=== PATIENT | male | born 1955 | race Two or more races ===

== ENCOUNTER 2020-02-17 12:16 | Inpatient (IN) | payer MEDICARE, OTHER ==
[~2020-02-17] VITALS: Ht 170.2 cm; Wt 59.4 kg
[2020-02-17 13:13] LABS: BASOPHILS % (AUTO) 0.6 % (0.0-2.0); HEMATOCRIT 40 % (39-51); HEMOGLOBIN 13.5 g/dL (13.5-17.5); LYMPHOCYTES # (AUTO) 2.1 /CMM (0.8-4.8); LYMPHOCYTES % (AUTO) 32.3 % (20.0-44.0); MEAN CORPUSCULAR HGB CONC 34 g/dl (31.0-36.0); MEAN CORPUSCULAR VOLUME 96 fL (80-96); MONOCYTES # (AUTO) 0.5 /CMM (0.1-1.30); MONOCYTES % (AUTO) 6.9 % (2.0-12.0); NEUTROPHILS # (AUTO) 3.9 /CMM (1.8-8.9); NEUTROPHILS % (AUTO) 59.2 % (43.0-81.0); PLATELET COUNT (AUTO) 249 /CMM (150-450); RED BLOOD CELL COUNT(AUTO) 4.21 MIL/uL (4.5-6.0); WHITE BLOOD COUNT (AUTO) 6.5 K/uL (4.3-11.0)
[2020-02-17 13:27] LABS: ALANINE AMINOTRANSFERASE 27 U/L (12-78); ALKALINE PHOSPHATASE 79 U/L (46-116); ASPARTATE AMINOTRANSFERASE 21 U/L (15-37); BILIRUBIN,DIRECT 0.2 mg/dL (0.0-0.2); BILIRUBIN,TOTAL 0.8 mg/dL (0.2-1.0); CALCIUM, SERUM 9.4 mg/dL (8.5-10.1); CARBON DIOXIDE 26 mmol/L (21-32); CHLORIDE 105 mmol/L (98-107); CREATININE 1.2 mg/dL (0.6-1.3); GLUCOSE 113 mg/dL (74-106); POTASSIUM 4.3 mmol/L (3.5-5.1); SODIUM SERUM 139 mmol/L (136-145); TOTAL PROTEIN, SERUM 7.9 g/dL (6.4-8.2); UREA NITROGEN, BLOOD 12 mg/dL (7-18)
[2020-02-17 13:47] LABS: B-TYPE NATRIURETIC PEPTIDE 127 PG/ML (0-125); LIPASE 109 U/L (73-393)
--- NOTE | 2020-02-17 14:02 | NUR ---
CALLED HOUSE SUP FOR TELE BED.
--- NOTE | 2020-02-17 14:15 | NUR ---
BED 321-2
--- NOTE | 2020-02-17 14:17 | NUR ---
CPVID SWAB DONE AND SENT TO LAB
--- NOTE | 2020-02-17 14:42 | NUR ---
Called report to Imfrancisulate RN 321-2 aware of plan of care
--- NOTE | 2020-02-17 14:54 | NUR ---
COVID RESULT NEGATIVE
[2020-02-17] MEDS ORDERED: ONDANSETRON HCL/PF 4 MG/2 ML VIAL IVP PRN (15:00)
[2020-02-17] MEDS ORDERED: MORPHINE SULFATE INJ 2 MG/ML DISP.SYRIN IV PRN (15:00)
[2020-02-17] MEDS ORDERED: ACETAMINOPHEN 325 MG TABLET PO PRN (15:00)
[2020-02-17] MEDS ORDERED: MAG HYDROX/AL HYDROX/SIMETH 30 ML UDC PO PRN (15:00)
[2020-02-17] MEDS ORDERED: HYDROCODONE/APAP 5/325MG 1 EACH TABLET PO PRN (15:00)
[2020-02-17] MEDS ORDERED: ZOLPIDEM TARTRATE 5 MG TABLET PO PRN (15:00)
[2020-02-17] MEDS ORDERED: MAGNESIUM HYDROXIDE 30 ML UDC PO PRN (15:00)
--- NOTE | 2020-02-17 15:05 | NUR ---
ENGINEERING PROJECT DESIGNER ADMITTING NOTES RECEIVED REPORT FROM PORTER, EMERGENCY ROOM RN, PATIENT TRANSPORTED TO UNIT AT THIS TIME BY MAX. AOX4. PT ABLE TO MAKE NEEDS KNOWN. NO SOB NOTED, NO S/S OF ANY ACUTE DISTRESS NOTED, NO C/O PAIN AT THIS TIME. RESPIRATIONS EVEN AND UNLABORED ON RA. IV ACCESS ON RAC G#20, INTACT, PATENT AND FLUSHING WELL. SKIN INTACT. BELONGINGS ACCOUNTED FOR AND FILED IN CHART. PATIENT ABLE TO AMBULATE WITH ASSIST. PT ORIENTED TO ROOM. SAFETY PRECAUTIONS IN PLACE, BED IN LOWEST LOCKED POSITION, HOB ELEVATED TO SEMI FOWLERS POSITION, SIDE RAILS UP, CALL LIGHT WITHIN REACH, WILL ENDORSE TO MECHANICAL OPERATOR NURSE FOR SAHARA.
--- NOTE | 2020-02-17 15:06 | NUR ---
PATIENT ON EXTERNAL CARDIAC TELE MONITOR READING SB 49. WILL CONTINUE TO MONITOR
[2020-02-17] MEDS ORDERED: CLONIDINE HCL 0.1 MG TABLET PO PRN (15:30)
--- NOTE | 2020-02-17 15:47 | NUR ---
FNS CALLED TO CLARIFY PATIENT'S MACHINE RIVETER STATUS OR REGULAR DIET STATUS. ALTAGRACIA, NPWAS MADE AWARE TO CLARIFY. PER ALTAGRACIA, MACHINE RIVETER, PT CAN EAT. ORDERS READ BACK AND CARRIED OUT. WILL CONTINUE TO MONITOR
[2020-02-17 16:00] VITALS: BP 160/81
[2020-02-17] MEDS: IV 1/2NS 1000 ML 1,000 ML IV PRN (16:06)
--- NOTE | 2020-02-17 16:19 | NUR ---
PATIENT TRANSPORTED OUT OF UNIT AT THIS TIME BY WHEEL CHAIR FOR CT HEAD W/O CONTRAST PER ORDER. WILL CONTINUE TO MONITOR
--- NOTE | 2020-02-17 17:00 | NUR ---
PATIENT TRANSPORTED TO UNIT AT THIS TIME BY WHEEL CHAIR FROM CT HEAD W/O CONTRAST PER ORDER. WILL CONTINUE TO MONITOR
--- NOTE | 2020-02-17 19:25 | NUR ---
DR JOY UPDATED ABOUT PATIENT'S STATUS. PER DOCTOR JOY, ORDER H/H AND NPO STATUS POST MIDNIGHT. ORDERS READ BACK AND CARRIED OUT. WILL CONTINUE TO MONITOR
--- NOTE | 2020-02-17 19:35 | NUR ---
MS RN CLOSING NOTES PT AWAKE IN BED AT THIS TIME. PT REMAINED STABLE THROUGHOUT SHIFT. ALL CARE, NEEDS, TREATMENT, MEDICATIONS ADMINISTERED ANTICIPATED PER SCHEDULE. PT KEPT CLEAN AND DRY. SAFETY PRECAUTIONS IN PLACE, BED IN LOWEST LOCKED POSITION, HOB ELEVATED TO SEMI FOWLERS POSITION, SIDE RAILS UP, CALL LIGHT WITHIN REACH, WILL ENDORSE TO COSMETOLOGY PROFESSOR NURSE FOR SAHARA.
--- NOTE | 2020-02-17 19:45 | NUR ---
REFRACTORY FURNACE DESIGNER OPENING NOTES PT RECEIVED, A/OX4, ON ROOM AIR, BREATHING EVEN AND UNLABORED. DENIES SOB AND PAIN AT THIS TIME. IN NO ACUTE DISTRESS. IV TO LAC PATENT AND INTACT RUNNING IVF ORDERED. HOB ELEVATED. SIDE RAILS UPX3 AND BED ALARM ON FOR SAFETY. DENIES N/V AT THIS TIME. ON HIDE SELECTOR, HEART RATE 47 WITH QUESTIONABLE SECOND DEGREE AV BLOCK TYPE 2 VS 3RD DEGREE. BACTERIOLOGIST MEDICAL NOTIFIED STAT
[2020-02-17 19:50] VITALS: BP_SYST 144; BP_SYST 156; BP_SYST 157; BP_DIAS 67; BP_DIAS 68
--- NOTE | 2020-02-17 19:55 | NUR ---
PT AWAKE, ALERT, WITH NO COMPLAINTS. DOES MENTION SOME SLIGHT DIZZINESS WHICH IS IMPROVED BY ELEVATING HEAD OF THE BED.
--- NOTE | 2020-02-17 20:00 | NUR ---
EKG ORDERED PER PROTOCOL TO CONFIRM CARDIAC RHYTHM
--- NOTE | 2020-02-17 20:10 | NUR ---
RT AT BEDSIDE FOR EKG
--- NOTE | 2020-02-17 20:17 | NUR ---
DR PRATHER NOTIFIED OF EKG RESULT - 3RD DEGREE HEART BLOCK
--- NOTE | 2020-02-17 20:20 | NUR ---
DEFIBRILLATOR PADS PLACED ON PT
--- NOTE | 2020-02-17 20:35 | NUR ---
EMERGENCY CONTACT #'S = BROWN (SISTER) [phone]; MAKAYLA (FRIEND) [phone]
[2020-02-17 20:38] VITALS: BP 156/68
[2020-02-17 21:20] VITALS: BP 145/74
--- NOTE | 2020-02-17 21:20 | NUR ---
PT TRANSFERRED TO ICU VIA ACLS PROTOCOL
[2020-02-17] MEDS: ENOXAPARIN SODIUM 40 MG/0.4 ML DISP.SYRIN SQ SCH (21:25)
[2020-02-17 22:00] VITALS: BP 158/78
[2020-02-17 23:00] VITALS: BP 146/68
[2020-02-18] VITALS (31 sets, daily range): BP systolic 93–182; BP diastolic 39–93
[2020-02-18 04:28] LABS: BASOPHILS % (AUTO) 0.6 % (0.0-2.0); EOSINOPHILS % (AUTO) 1.4 % (0.0-6.0); HEMATOCRIT 40 % (39-51); LYMPHOCYTES # (AUTO) 2.6 /CMM (0.8-4.8); LYMPHOCYTES % (AUTO) 36.9 % (20.0-44.0); MEAN CORPUSCULAR HGB CONC 35 g/dl (31.0-36.0); MEAN CORPUSCULAR VOLUME 95 fL (80-96); MONOCYTES # (AUTO) 0.5 /CMM (0.1-1.30); MONOCYTES % (AUTO) 7.5 % (2.0-12.0); NEUTROPHILS # (AUTO) 3.7 /CMM (1.8-8.9); NEUTROPHILS % (AUTO) 53.6 % (43.0-81.0); PLATELET COUNT (AUTO) 238 /CMM (150-450); RED BLOOD CELL COUNT(AUTO) 4.28 MIL/uL (4.5-6.0); WHITE BLOOD COUNT (AUTO) 6.9 K/uL (4.3-11.0)
[2020-02-18 04:50] LABS: ALBUMIN 3.7 g/dL (3.4-5.0); BILIRUBIN,TOTAL 0.7 mg/dL (0.2-1.0); CALCIUM, SERUM 9.4 mg/dL (8.5-10.1); CREATININE 1.1 mg/dL (0.6-1.3); MAGNESIUM 2.3 mg/dL (1.8-2.4); PHOSPHORUS 3.9 mg/dL (2.5-4.9); POTASSIUM 3.7 mmol/L (3.5-5.1); TOTAL PROTEIN, SERUM 7.4 g/dL (6.4-8.2)
[2020-02-18 05:03] LABS: THYROID STIMULATING HORMONE 6.849 uIU/mL (0.358-3.74)
--- NOTE | 2020-02-18 07:30 | NUR ---
RN NOTES RECEIVED PATIENT IN BED, AWAKE, ALERT AND [id number] X4, ABLE TO MAKE NEEDS KNOWN. NOT ON ANY FORM OF DISTRESS. BREATHING UNLABORED. ON OXYGEN SUPPORT VIA NASAL CANNULA, SATS ON 100%. NO COMPLAINTS OF PAIN OF ANY KIND. SINUS RHYTHM/ SINUS JOQAUÍN ON THE MONITOR. IV ACCESS ON THE LAC G [address], DRESSING IN PLACE AND INTACT, WITH ONGOING IVF ON 1/S NS AT 50 CC/HR. PATIENT ENCOURAGE TO VERBALIZE FEELINGS AND CONCERNS, CALL FOR HELP/ ASSISTANCE WHEN IN NEED. CALL LIGHT PLACED WITHIN REACH. SAFETY MEASURES OBSERVED AND PUT IN PLACE. WILL CONTINUE TO MONITOR PATIENT ACCORDINGLY
[2020-02-18] MEDS ORDERED: EMTR1TAB17 PO (07:58)
[2020-02-18] MEDS ORDERED: [UNRECOGNIZED DRUG - CODE] PO (07:58)
[2020-02-18] MEDS ORDERED: ACYC800T PO (07:58)
[2020-02-18] MEDS ORDERED: OMEP20CA15 PO (07:58)
[2020-02-18] MEDS ORDERED: DARU1TAB PO (07:58)
[2020-02-18] MEDS ORDERED: ENOXAPARIN SODIUM 40 MG/0.4 ML DISP.SYRIN SQ SCH (09:00)
[2020-02-18] MEDS: VALSARTAN 80 MG TABLET PO SCH (10:17)
[2020-02-18] MEDS: AMLODIPINE BESYLATE 10 MG TABLET PO SCH (10:17)
[2020-02-18] MEDS ORDERED: ACYCLOVIR 800 MG TABLET PO SCH (17:00)
[2020-02-18] MEDS: ACYCLOVIR 800 MG TABLET PO SCH ×2 (17:55→20:29)
--- NOTE | 2020-02-18 19:05 | NUR ---
TRANDFERRED TO ROOM 307-1. BEDSIDEQW REPORT GIVEN TO SNADRA TUCKER HANDS OFF
--- NOTE | 2020-02-18 19:10 | NUR ---
COMBINATION SAW OPERATOR NOTES RECEIVED PT IN BED AWAKE AND ABLE TO MAKE NEEDS KNOWN. PT A/O 3. RESPIRATIONS EVEN AND UNLABORED WITH NO S/S OF ACUTE DISTRESS OR SOB NOTED. NO COMPLAINTS OF PAIN AT THIS TIME. PT NOTED WITH LAC #20 PATENT AND INTACT INFUSING 1/2 NS @50CC/HR. SAFETY MEASURES IN PLACE WITH BED IN LOWEST LOCKED POSITION WITH SIDE RAILS UP X2. CALL LIGHT WITHIN REACH. WILL CONTINUE TO MONITOR.
[2020-02-18] MEDS: [UNRECOGNIZED DRUG - OTHER] PO SCH (20:24)
[2020-02-18] MEDS: Medication Not On Formulary EA (Emtricitabine/Tenofov Alafenam (Descovy 200-25 mg Tablet PO SCH (20:27)
[2020-02-18] MEDS: ENOXAPARIN SODIUM 40 MG/0.4 ML DISP.SYRIN SQ SCH (20:30)
[2020-02-19] VITALS: BP 122/74
[2020-02-19 04:00] VITALS: BP 120/68
[2020-02-19 06:03] LABS: HEMOGLOBIN 13.7 g/dL (13.5-17.5)
[2020-02-19 06:24] LABS: CALCIUM, SERUM 9.6 mg/dL (8.5-10.1); POTASSIUM 3.9 mmol/L (3.5-5.1)
[2020-02-19 06:36] LABS: BASOPHILS % (AUTO) 0.5 % (0.0-2.0); EOSINOPHILS % (AUTO) 4.1 % (0.0-6.0); HEMATOCRIT 41 % (39-51); LYMPHOCYTES % (AUTO) 33.9 % (20.0-44.0); MEAN CORPUSCULAR HGB CONC 33 g/dl (31.0-36.0); MEAN CORPUSCULAR VOLUME 95 fL (80-96); MONOCYTES # (AUTO) 0.5 /CMM (0.1-1.30); MONOCYTES % (AUTO) 7.7 % (2.0-12.0); NEUTROPHILS # (AUTO) 3.3 /CMM (1.8-8.9); NEUTROPHILS % (AUTO) 53.8 % (43.0-81.0); PLATELET COUNT (AUTO) 243 /CMM (150-450); RED BLOOD CELL COUNT(AUTO) 4.33 MIL/uL (4.5-6.0)
--- NOTE | 2020-02-19 06:55 | NUR ---
BUSINESS SERVICES ADMINISTRATOR NOTES PT IN BED AWAKE AND ABLE TO MAKE NEEDS KNOWN. PT A/O 3. RESPIRATIONS EVEN AND UNLABORED WITH NO S/S OF ACUTE DISTRESS OR SOB NOTED THROUGHOUT SHIFT. NO COMPLAINTS OF PAIN AT THIS TIME. PT NOTED WITH LAC #20 PATENT AND INTACT INFUSING 1/2 NS @50CC/HR. SAFETY MEASURES IN PLACE WITH BED IN LOWEST LOCKED POSITION WITH SIDE RAILS UP X2. CALL LIGHT WITHIN REACH. WILL ENDORSE TO ONCOMING NURSE FOR SAHARA.
[2020-02-19] MEDS: PANTOPRAZOLE 40 MG TABLET.DR PO SCH (07:30)
[2020-02-19 08:00] VITALS: BP 145/76
--- NOTE | 2020-02-19 08:00 | NUR ---
RN NOTES RECEIVED PATIENT IN THE BED A/O X3-4 BED REST, PATIENT TELE SB-49, PER COMMERCIAL ATTORNEY PATIENT HAS SCHEDULED PACEMAKER INSERTION TODAY, PATIENT NPO, CONSENT FORMA SIGNED, EDUCATED PATIENT FOR PROCEDURE. PATIENT USING URINAL, V/S TAKEN STABLE, CALL LIGHT WITHIN TO REACH, SAFETY PRECAUTION MAINTAINED ALL THE TIME.
[2020-02-19] MEDS: Medication Not On Formulary EA (Emtricitabine/Tenofov Alafenam (Descovy 200-25 mg Tablet PO SCH (08:36)
[2020-02-19] MEDS: VALSARTAN 80 MG TABLET PO SCH (08:36)
[2020-02-19] MEDS: [UNRECOGNIZED DRUG - OTHER] PO SCH ×2 (08:37→17:38)
[2020-02-19] MEDS: AMLODIPINE BESYLATE 10 MG TABLET PO SCH (08:37)
[2020-02-19] MEDS: ACYCLOVIR 800 MG TABLET PO SCH ×4 (08:38→20:54)
--- NOTE | 2020-02-19 11:00 | NUR ---
rn notes get call from Dr. Roberts will see patient for pacemaker placement, patient NPO, sign consent forms.
--- NOTE | 2020-02-19 13:30 | NUR ---
rn notes patient hot die picker for pacemaker placements at this time, patient stable, refused pain, v/s wnl.
[2020-02-19] MEDS ORDERED: LIDOCAINE HCL/MPF 1% 30 ML VIAL IJ ONE ×2 (13:46→13:50)
[2020-02-19] MEDS ORDERED: IOHEXOL 240MG/ML 0 ML IV ONE (14:05)
[2020-02-19 15:30] VITALS: BP 123/67
--- NOTE | 2020-02-19 15:30 | NUR ---
RN NOTES PATIENT BACK FROM SURGERY PACEMAKER PLACEMENT ON LEFT UPPER CHEST INTACT, V/S STABLE HR-79, PATIENT REFUSED PAIN, SAFETY PRECAUTION MAINTAINED ALL THE TIME.
[2020-02-19] MEDS: IV 1/2NS 1000 ML 1,000 ML IV PRN (17:33)
--- NOTE | 2020-02-19 18:00 | NUR ---
rn notes PATIENT STABLE, ADMINISTERED SCHEDULED MEDICATION, INFUSING 1/2 NS AR 50 ML/HE INTACT, PATIENT REFUSED PAIN HR-79, TOLERATED DINNER WELL, CALL LIGHT WITHIN TO REACH. CONTINUED MONITORING.
--- NOTE | 2020-02-19 19:30 | NUR ---
SAP TECHNICAL DEVELOPER NOTES PATIENT IN BED, AWAKE, ALERT AND ORIENTED X 3. BREATHING EVEN AND UNLABORED ON ROOM AIR. SHOWS NO SIGNS OF ACUTE RESPIRATORY DISTRESS, NO ACUTE PAIN. IV ON LAC 20G RUNNNING 1/2 NS AT 50ML/HR. SHOWS NO SIGNS OF INFILTRATION, NO REDNESS. SAFETY PRECAUTIONS IN PLACE. BED IN LOWEST POSITION, LOCKED, AND CALL LIGHT KEPT WITHIN REACH. WILL CONTINUE TO MONITOR.
[2020-02-19 20:00] VITALS: BP 120/67
[2020-02-19] MEDS: ENOXAPARIN SODIUM 40 MG/0.4 ML DISP.SYRIN SQ SCH (20:56)
[2020-02-20] VITALS: BP 124/71
[2020-02-20 04:00] VITALS: BP 127/75
[2020-02-20 06:30] LABS: BASOPHILS % (AUTO) 0.5 % (0.0-2.0); HEMATOCRIT 40 % (39-51); HEMOGLOBIN 13.6 g/dL (13.5-17.5); LYMPHOCYTES # (AUTO) 2.1 /CMM (0.8-4.8); LYMPHOCYTES % (AUTO) 27.4 % (20.0-44.0); MEAN CORPUSCULAR HGB CONC 34 g/dl (31.0-36.0); MEAN CORPUSCULAR VOLUME 95 fL (80-96); MONOCYTES # (AUTO) 0.5 /CMM (0.1-1.30); MONOCYTES % (AUTO) 6.9 % (2.0-12.0); NEUTROPHILS # (AUTO) 4.8 /CMM (1.8-8.9); NEUTROPHILS % (AUTO) 63.2 % (43.0-81.0); PLATELET COUNT (AUTO) 235 /CMM (150-450); RED BLOOD CELL COUNT(AUTO) 4.21 MIL/uL (4.5-6.0); WHITE BLOOD COUNT (AUTO) 7.6 K/uL (4.3-11.0)
--- NOTE | 2020-02-20 06:41 | NUR ---
IMPORT SPECIALIST NOTES PATIENT IN BED, ASLEEP, ALERT AND ORIENTED X 3. BREATHING EVEN AND UNLABORED ON ROOM AIR. SHOWS NO SIGNS OF ACUTE RESPIRATORY DISTRESS, NO ACUTE PAIN. TELE MONITOR V PACING 80'S HR. IV ON LAC 20G RUNNING 1/2 NS AT 50ML/HR. SHOWS NO SIGNS OF INFILTRATION, NO REDNESS. ALL DUE MEDICATIONS GIVEN. SAFETY PRECAUTIONS IN PLACE. BED IN LOWEST POSITION, LOCKED, AND CALL LIGHT KEPT WITHIN REACH. WILL ENDORSE TO ONCOMING NURSE.
[2020-02-20 06:53] LABS: ALBUMIN 3.4 g/dL (3.4-5.0); BILIRUBIN,TOTAL 0.8 mg/dL (0.2-1.0); CALCIUM, SERUM 9.1 mg/dL (8.5-10.1)
--- NOTE | 2020-02-20 07:00 | NUR ---
ms rn received on bed, awake,alert,oriented x4,not in any form of distress,respirations even and unlabored,no sob noted,lungs are clear,abdomen soft,positive bowel sounds, denies pain at this time,all needs attended.
[2020-02-20] MEDS ORDERED: AMLO10TA7 PO (07:28)
[2020-02-20] MEDS ORDERED: ATEN50TA PO (07:28)
[2020-02-20] MEDS: PANTOPRAZOLE 40 MG TABLET.DR PO SCH ×2 (07:30→11:06)
[2020-02-20] MEDS ORDERED: ATENOLOL 50 MG TABLET PO SCH (09:00)
--- NOTE | 2020-02-20 09:00 | NUR ---
ms garrett breakfast served,due meds given,tolerated well.
--- NOTE | 2020-02-20 09:10 | NUR ---
ms rn was seen by emeli miller/ order to go home today
[2020-02-20 09:33] VITALS: BP 124/72
[2020-02-20] MEDS: ACYCLOVIR 800 MG TABLET PO SCH ×2 (09:33→15:31)
[2020-02-20] MEDS: Medication Not On Formulary EA (Emtricitabine/Tenofov Alafenam (Descovy 200-25 mg Tablet PO SCH (09:33)
[2020-02-20] MEDS: AMLODIPINE BESYLATE 10 MG TABLET PO SCH (09:33)
[2020-02-20] MEDS: [UNRECOGNIZED DRUG - OTHER] PO SCH (09:34)
--- NOTE | 2020-02-20 12:41 | NUR ---
ms rn on bed, no distress noted.
--- NOTE | 2020-02-20 15:00 | NUR ---
ms rn patient went home w/ prescription, picked up by friend,no distress noted.
== END 2020-02-20 15:45 | disposition home or self-care (01) | DRG 244 ==
LOC: ER 12:25 → TELE 14:24 → ICU 21:03 → TELE 02-18 19:07
PROVIDERS: ADMIT Nurse Practitioner Acute Care; ATTEND Nurse Practitioner Acute Care
PROC: 0JH606Z Insertion of Pacemaker, Dual Chamber into Chest Subcutaneous Tissue and Fascia, Open Approach (ICD-10-PCS; principal; 2020-02-19)
PROC: 02H63JZ Insertion of Pacemaker Lead into Right Atrium, Percutaneous Approach (ICD-10-PCS; principal; 2020-02-19)
PROC: 02HK3JZ Insertion of Pacemaker Lead into Right Ventricle, Percutaneous Approach (ICD-10-PCS; principal; 2020-02-19)
DX: I44.2 Atrioventricular block, complete (principal); I10 Essential (primary) hypertension; R73.9 Hyperglycemia, unspecified; Z98.890 Other specified postprocedural states; R10.9 Unspecified abdominal pain; R55 Syncope and collapse
CPT/HCPCS: 36415; 70450-TC; 71045-TC; 80048-TC; 80053-TC; 80061-TC; 80076-TC; 83690-TC; 83735-TC; 83880; 84100-TC; 84436-TC; 84443-TC; 84481; 84484-TC; 85025-TC; 85027-TC; 86850-TC; 87081-TC; 93307-TC; C1786; G0378; J1650; J3490; J7030; Q9966; U0003-CS

== ENCOUNTER 2022-08-10 16:04 | Inpatient (IN) | payer OTHER ==
[~2022-08-10] VITALS: Ht 170.2 cm; Wt 60.8 kg
[~2022-08-10 16:04] MED LIST: ACYC-108 PO; AMLO-213 PO; ATEN50TA PO; DARU1TAB PO; EMTR1TAB17 PO; OMEP20CA15 PO; [UNRECOGNIZED DRUG - CODE] PO
--- NOTE | 2022-08-10 16:10 | NUR ---
BIBS C/O PAINFUL URINATION X1WEEK, POOR APPETITE, AND HAVING A FEVER
--- NOTE | 2022-08-10 16:20 | NUR ---
established iv line 20 g at right forearm infusing well
--- NOTE | 2022-08-10 16:25 | NUR ---
blood / urine sample obtained sent to lab
[2022-08-10] MEDS ORDERED: IV NS 0.9% 1,000 ML BAG IV ONE ×2 (16:30→21:00)
[2022-08-10] MEDS ORDERED: CEFTRIAXONE 1GM BAG (ER ONLY) 50 ML IV ONE ×2 (16:30→17:01)
--- NOTE | 2022-08-10 16:30 | NUR ---
covid swab taken by shar FLORES " O " sent to lab
[2022-08-10] MEDS ORDERED: KETOROLAC TROMETHAMINE INJ 30 MG/ML VIAL IV ONE (17:00)
[2022-08-10] MEDS ORDERED: ACETAMINOPHEN 325 MG TABLET PO ONE (17:00)
[2022-08-10] MEDS ORDERED: KETOROLAC TROMETHAMINE INJ 30 MG/ML VIAL ONE (17:02)
[2022-08-10] MEDS ORDERED: ACETAMINOPHEN 325 MG TABLET ONE ×2 (17:03→17:07)
[2022-08-10 17:20] LABS: BASOPHILS % (AUTO) 0.1 % (0.0-2.0); HEMATOCRIT 34 % (39-51); LYMPHOCYTES # (AUTO) 2.2 K/uL (0.8-4.8); LYMPHOCYTES % (AUTO) 11.9 % (20.0-44.0); MEAN CORPUSCULAR HGB CONC 32 g/dl (31.0-36.0); MEAN CORPUSCULAR VOLUME 89 fL (80-96); MONOCYTES # (AUTO) 1.3 K/uL (0.1-1.30); MONOCYTES % (AUTO) 7.4 % (2.0-12.0); NEUTROPHILS # (AUTO) 14.7 K/uL (1.8-8.9); NEUTROPHILS % (AUTO) 80.6 % (43.0-81.0); PLATELET COUNT (AUTO) 272 K/uL (150-450); RED BLOOD CELL COUNT(AUTO) 3.84 MIL/uL (4.5-6.0); WHITE BLOOD COUNT (AUTO) 18.2 K/uL (4.3-11.0)
[2022-08-10 17:23] LABS: BILIRUBIN,URINE NEGATIVE (NEGATIVE); COLOR,URINE YELLOW (YELLOW); LEUKOCYTE ESTERASE ,URINE 3+ (NEGATIVE); NITRITE, URINE NEGATIVE (NEGATIVE); PH,URINE 7.5 (5.0-8.0); PROTEIN,URINE 2+ mg/dl (NEGATIVE); UGLUCOSE NEGATIVE (NEGATIVE)
[2022-08-10 17:59] LABS: BACTERIA,URINE Many /HPF (None Seen); SQUAMOUS EPITHELIAL CELL,UR Few /HPF (None Seen); WBC,URINE TOO NUMEROUS TO COUN /HPF (0-3)
[2022-08-10 18:00] LABS: ALBUMIN 2.8 g/dL (3.4-5.0); BILIRUBIN,DIRECT 0.3 mg/dL (0.0-0.2); BILIRUBIN,TOTAL 1.4 mg/dL (0.2-1.0); CALCIUM, SERUM 9.6 mg/dL (8.5-10.1); CREATININE 1.6 mg/dL (0.6-1.3); POTASSIUM 3.8 mmol/L (3.5-5.1); TOTAL PROTEIN, SERUM 7.8 g/dL (6.4-8.2)
[2022-08-10] MEDS ORDERED: ATOR10TA PO (18:27)
[2022-08-10] MEDS ORDERED: AMLO-213 PO (18:27)
[2022-08-10] MEDS ORDERED: BICT1TAB PO (18:27)
--- NOTE | 2022-08-10 18:38 | NUR ---
NOTIFIED BY ADMITTING THAT THE PT IS GOING TO BE TRANSFERED TO [facility]. FAXED CLINICALS TO INSURANCE AWAITING A CALL BACK FOR VERBAL CLINICALS
[2022-08-10] MEDS ORDERED: IOHEXOL-300 100 ML VIAL IV ONE (18:56)
[2022-08-10] MEDS ORDERED: IV NS 0.9% 250 ML IV ONE (18:56)
[2022-08-10] MEDS ORDERED: IV NS 0.9% 1,000 ML IV ONE ×2 (19:30→23:30)
--- NOTE | 2022-08-10 20:06 | NUR ---
COVID POSITIVE; CONTACT DROPLET ISO IN PLACE
--- NOTE | 2022-08-10 20:52 | NUR ---
VERBAL ORDER 1L NS
--- NOTE | 2022-08-10 22:50 | NUR ---
PT GOT AUTHORIZATION TO STAY INSTEAD OF TRANSFER.
--- NOTE | 2022-08-10 22:55 | NUR ---
MEGHAN WORLEY NP NOTIFIED FOR PT ADMISSION.
[2022-08-10] MEDS ORDERED: ONDANSETRON HCL/PF 4 MG/2 ML VIAL IVP PRN (23:30)
[2022-08-10] MEDS ORDERED: Z GUARD REMEDY 4 OZ OINT TP PRN (23:30)
[2022-08-10] MEDS ORDERED: MAGNESIUM HYDROXIDE 30 ML UDC PO PRN (23:30)
[2022-08-10] MEDS ORDERED: MAG HYDROX/AL HYDROX/SIMETH 30 ML UDC PO PRN (23:30)
[2022-08-10] MEDS ORDERED: ZOLPIDEM TARTRATE 5 MG TABLET PO PRN (23:30)
[2022-08-11] MEDS ORDERED: OMEPRAZOLE 20 MG CAPSULE.DR PO PRN
--- NOTE | 2022-08-11 01:13 | NUR ---
bed 108
[2022-08-11] MEDS: ACETAMINOPHEN 325 MG TABLET PO PRN (01:22)
--- NOTE | 2022-08-11 01:22 | NUR ---
report given to gerry boston for frances
[2022-08-11] MEDS ORDERED: ACETAMINOPHEN 325 MG TABLET ONE (01:23)
--- NOTE | 2022-08-11 01:34 | NUR ---
patient transferred under acls
--- NOTE | 2022-08-11 02:00 | NUR ---
FLOOR TRADER NOTE RECEIVED PT VIA FREDDYRKRISTINA FROM ER WITH THE DX OF PYELONEPHRITIS. PT IS AWAKE, A/O X 4, ABLE TO MAKE NEEDS KNOWN. ON ROOM AIR, TOLERATING WELL SATING @ >95%. NO SOB, NO S/SX OF ACUTE RESPI DISTRESS NOTED AT THIS TIME. ON CHUTE GREASER SHOWING SR, HR IN THE 80s. PT HAS L CHEST WALL PACEMAKER. IV ACCESS NOTED IN R WRIST #20g, PATENT AND INTACT, FLUSHES WELL. SKIN IS INTACT, NO OPEN WOUNDS NOTED. PT IS COVID POSITIVE; ON DROPLET PRECAUTION. ALL VSS EXCEPT FOR TEMP @ 103.1. PT GIVEN TYLENOL @ ER BEFORE GOING TO THE UNIT. COLD BATH AND ICE PACKS GIVEN. ALL SAFETY MEASURES IN PLACE: BED LOCKED IN LOW POSITION, SR UP X 2, CALL LIGHT AND TABLE WITHIN REACH. WILL CONTINUE TO MONITOR PT.
[2022-08-11 04:00] VITALS: BP 118/63
--- NOTE | 2022-08-11 06:06 | NUR ---
RN NOTE NO SIGNIFICANT CHANGE T/O THE NIGHT; REMAINED STABLE. PT NOW AFEBRILE. VSS. ALL NEEDS ATTENDED TO. WILL ENDORSE TO AM SHIFT NURSE FOR SAHARA.
[2022-08-11 06:51] LABS: CALCIUM, SERUM 9.1 mg/dL (8.5-10.1); CREATININE 1.3 mg/dL (0.6-1.3); PHOSPHORUS 2.7 mg/dL (2.5-4.9); POTASSIUM 3.8 mmol/L (3.5-5.1)
[2022-08-11 06:54] LABS: BASOPHILS % (AUTO) 0.1 % (0.0-2.0); EOSINOPHILS % (AUTO) 0.1 % (0.0-6.0); HEMATOCRIT 35 % (39-51); HEMOGLOBIN 11.4 g/dL (13.5-17.5); LYMPHOCYTES # (AUTO) 1.8 K/uL (0.8-4.8); LYMPHOCYTES % (AUTO) 11.6 % (20.0-44.0); MEAN CORPUSCULAR HGB CONC 32 g/dl (31.0-36.0); MEAN CORPUSCULAR VOLUME 90 fL (80-96); MONOCYTES # (AUTO) 1.1 K/uL (0.1-1.30); MONOCYTES % (AUTO) 7.1 % (2.0-12.0); NEUTROPHILS # (AUTO) 12.3 K/uL (1.8-8.9); NEUTROPHILS % (AUTO) 81.1 % (43.0-81.0); PLATELET COUNT (AUTO) 259 K/uL (150-450); RED BLOOD CELL COUNT(AUTO) 3.93 MIL/uL (4.5-6.0); WHITE BLOOD COUNT (AUTO) 15.2 K/uL (4.3-11.0)
--- NOTE | 2022-08-11 07:25 | NUR ---
SEATING AND MOBILITY TECHNOLOGIST OPENING NOTES Received pt asleep in bed. Pt ic currently on RA and tolerating it well. A/OX4 no complaints of pain or discomfort at this time. IV accee on right wrist 20G patent and intact. HOB elevated to pts comfort. Siderails up at all times x2. Call light within reach. Will continue to monitor.
[2022-08-11 08:00] VITALS: BP 121/66
[2022-08-11] MEDS ORDERED: PANTOPRAZOLE 40 MG TABLET.DR PO PRN (08:00)
[2022-08-11] MEDS: AMLODIPINE BESYLATE 10 MG TABLET PO SCH (08:31)
[2022-08-11] MEDS: ATORVASTATIN 10 MG TABLET PO SCH (08:32)
[2022-08-11 12:00] VITALS: BP 121/66
--- NOTE | 2022-08-11 14:25 | NUR ---
AMBULANCE OFFICER NOTES Lab called with blood culture results Anaerobic bottle gram negative rods. MD Sepulveda notified.
[2022-08-11 16:00] VITALS: BP 126/74
[2022-08-11] MEDS ORDERED: CEFTRIAXONE 1 G in IV D5W 50 ML IV SCH (16:00)
[2022-08-11] MEDS ORDERED: CEFEPIME 2 GM in IV D5W 100 ML IV SCH (16:00)
[2022-08-11] MEDS ORDERED: CEFEPIME 1 GM VIAL IM SCH (16:00)
[2022-08-11] MEDS ORDERED: MISCELLANEOUS MED 1 EA EA PO ONE (16:30)
[2022-08-11] MEDS: MEROPENEM 1 G in IV NS 0.9% 100 ML IV SCH (17:16)
--- NOTE | 2022-08-11 17:27 | NUR ---
STAKING TECHNICIAN NOTES Biktarvy medication held pending pharmacy verification.
--- NOTE | 2022-08-11 18:33 | NUR ---
ANALYTICAL DATA MINER CLOSING NOTES All due meds and tx given as ordered. Pt tolerated everything well. All needs attended to. Pt is currently on RA and tolerating it well. IV access on right wrist 20G patent and intact. Call light within reach. Will endorse to oncoming nurse.
--- NOTE | 2022-08-11 19:05 | NUR ---
TANDEM MILL STICKER OPENING NOTE PT IS SLEEPING IN BED, EASILY BEING AROUSED. PT IS ALERT AND ORIENTED, A/O X3. PT IS ON ISOLATION WITH POSITIVE COVID TEST RESULT. PT IS ON ROOM AIR, TOLERATING WELL. NO SOB OR DISTRESS. ON EXTERNAL AGENCY TRAINER, IT SHOWS PT'S HEART RHYTHM IS SINUS RHYTHM WITH HR AT 90S; AND SOMETIMES HIS HEART RATE INCREASES AND GOES TO ST WITH HEART RATE OF 110S. PT DENIES OF HAVING CHEST PAIN. IV ACCESS IS AT HIS RIGHT WRIST, #20G; SL. PATENT AND INTACT. SAFETY MEASURES IN PLACE: BED IN LOWEST AND LOCKED POSITION, SIDE RAILS UP X2, AND CALL LIGHT WITHIN REACH. WILL CONTINUE MONITOR THE PATIENT AND PROVIDE THE CARE PATIENT NEEDS.
[2022-08-11 20:00] VITALS: BP 113/66
[2022-08-11] MEDS ORDERED: TAMSULOSIN 0.4 MG CAP.SR.24H PO SCH (22:00)
[2022-08-12] VITALS: BP 124/74
[2022-08-12] MEDS: MEROPENEM 1 G in IV NS 0.9% 100 ML IV SCH ×2 (00:14→09:04)
[2022-08-12 04:00] VITALS: BP 118/70
[2022-08-12 06:06] LABS: *BASOS 0 % (Not Estab.); *BASOS, ABSOLUTE 0.1 x10E3/uL (0.0-0.2); *EOS 0 % (Not Estab.); *HCT 34.4 % (37.5-51.0); *HGB 11.5 g/dL (13.0-17.7); *IMMATURE GRANULOCYTES 2 % (Not Estab.); *IMMATURE GRANULOCYTES(ABS) 0.2 x10E3/uL (0.0-0.1); *LYMPHOCYTES 16 % (Not Estab.); *LYMPHS, ABSOLUTE 2.5 x10E3/uL (0.7-3.1); *MCH 29.5 pg (26.6-33.0); *MCHC 33.4 g/dL (31.5-35.7); *MCV 88 fL (79-97); *MONOCYTES 8 % (Not Estab.); *MONOS, ABSOLUTE 1.3 x10E3/uL (0.1-0.9); *NEUTROPHILS 74 % (Not Estab.); *NEUTROPHILS, ABSOLUTE 11.9 x10E3/uL (1.4-7.0); *PLT 282 x10E3/uL (150-450); *RDW 14.4 % (11.6-15.4)
[2022-08-12 06:15] LABS: BASOPHILS % (AUTO) 0.2 % (0.0-2.0); EOSINOPHILS % (AUTO) 0.6 % (0.0-6.0); HEMATOCRIT 34 % (39-51); HEMOGLOBIN 10.9 g/dL (13.5-17.5); LYMPHOCYTES # (AUTO) 2.1 K/uL (0.8-4.8); LYMPHOCYTES % (AUTO) 18.9 % (20.0-44.0); MEAN CORPUSCULAR HGB CONC 33 g/dl (31.0-36.0); MEAN CORPUSCULAR VOLUME 89 fL (80-96); MONOCYTES # (AUTO) 1.2 K/uL (0.1-1.30); MONOCYTES % (AUTO) 10.8 % (2.0-12.0); NEUTROPHILS # (AUTO) 7.7 K/uL (1.8-8.9); NEUTROPHILS % (AUTO) 69.5 % (43.0-81.0); PLATELET COUNT (AUTO) 273 K/uL (150-450); RED BLOOD CELL COUNT(AUTO) 3.78 MIL/uL (4.5-6.0)
[2022-08-12 06:42] LABS: CALCIUM, SERUM 9.3 mg/dL (8.5-10.1); CREATININE 1.2 mg/dL (0.6-1.3); POTASSIUM 3.3 mmol/L (3.5-5.1)
--- NOTE | 2022-08-12 06:45 | NUR ---
AGRICULTURAL PRODUCE SORTER CLOSING NOTE PT IS SLEEPING IN BED, EASILY BEING AROUSED. PT IS ALERT AND ORIENTED, A/O X 3. PT IS ON ROOM AIR, TOLERATING WELL. NO SOB OR DISTRESS. ON EXTERNAL ROTARY CUTTER, IT SHOWS PT'S HEART RHYTHM IS SINUS RHYTHM WITH HR AT 90S. PT DENIES OF HAVING CHEST PAIN. IV ACCESS IS AT HIS RIGHT WRIST, #20G; SL. PATENT AND INTACT. SAFETY MEASURES IN PLACE: BED IN LOWEST AND LOCKED POSITION, SIDE RAILS UP X2, CALL LIGHT AND TABLE ARE WITHIN REACH. WILL ENDORSE NEXT SHIFT NURSE FOR CONTINUING PATIENT CARE.
[2022-08-12 08:00] VITALS: BP 123/71
--- NOTE | 2022-08-12 08:51 | NUR ---
RN NOTE SPOKE TO BRITTANI, FROM [facility] ABOUT TRANSFERRING PATIENT, PATIENT HAS A BED . BRITTANI WOULD LIKE TO SPEAK TO CASE MANAGEMENT, BUT HAS NOT BEEN ABLE TO GET INTO CONTACT. WILL CONTACT CASE MANAGEMENT. CHARGE NURSE AWARE.
[2022-08-12] MEDS ORDERED: [UNRECOGNIZED DRUG - OTHER] PO SCH (09:00)
[2022-08-12 09:01] VITALS: BP 123/71
[2022-08-12] MEDS: ATORVASTATIN 10 MG TABLET PO SCH (09:01)
[2022-08-12] MEDS: ACETAMINOPHEN 325 MG TABLET PO PRN (09:01)
[2022-08-12] MEDS: AMLODIPINE BESYLATE 10 MG TABLET PO SCH (09:01)
[2022-08-12 09:07] LABS: *% CD 4 POS. LYMPH 8.6 % (30.8-58.5); *ABSOLUTE CD 4 HELPER 215 /uL (359-1519); *ABSOLUTE CD 8 SUPPRESSOR 1750 /uL (109-897); *CD4/CD8 RATIO 0.12 (0.92-3.72)
[2022-08-12] MEDS ORDERED: POTASSIUM CHLORIDE 20 MEQ TAB.PRT.SR PO ONE (10:00)
--- NOTE | 2022-08-12 11:21 | NUR ---
RN NOTE GAVE REPORT TO SANDRA GIBSON AT [facility], PATIENT HAS BED #1012. ESTIMATED TIME OF ARMED SECURITY PROFESSIONAL IS 1230. CHARGE NURSE AWARE.
== END 2022-08-12 12:19 | disposition short-term general hospital (02) | DRG 871 ==
LOC: ER 16:06 → MEDSG1 08-11 01:14 → TELE1 08-11 01:18
PROVIDERS: ADMIT Nurse Practitioner Acute Care; ATTEND Nurse Practitioner Acute Care
DX: A41.50 Gram-negative sepsis, unspecified (principal); N17.0 Acute kidney failure with tubular necrosis; U07.1 COVID-19; E44.0 Moderate protein-calorie malnutrition; N10 Acute pyelonephritis; A41.89 Other specified sepsis; Z95.0 Presence of cardiac pacemaker; Z90.49 Acquired absence of other specified parts of digestive tract; Z79.899 Other long term (current) drug therapy; Z78.9 Other specified health status; I10 Essential (primary) hypertension; E78.5 Hyperlipidemia, unspecified; D64.9 Anemia, unspecified; E88.09 Other disorders of plasma-protein metabolism, not elsewhere classified; N30.90 Cystitis, unspecified without hematuria; K57.90 Diverticulosis of intestine, part unspecified, without perforation or abscess without bleeding; N40.0 Benign prostatic hyperplasia without lower urinary tract symptoms; E87.6 Hypokalemia
CPT/HCPCS: 36415; 71045-TC; 80048-TC; 80076-TC; 81001; 83690-TC; 83735-TC; 84100-TC; 85025-TC; 85378-TC; 86140-TC; 86360; 87040-TC; 87081-TC; 87086-TC; 87536; C9803; G0378; J0692; J0696; J1885; J2185; J7030; J7050; J7060; Q9967